=== PATIENT | male | born 1960 | race Caucasian/White ===

== ENCOUNTER 2018-08-01 08:30 | Day surgery (SDC) | payer BC ==
[2018-08-01] MEDS ORDERED: PROPOFOL 20 ML ×2 (10:27→11:17)
== END 2018-08-01 12:31 | disposition home or self-care (01) ==
LOC: GIL 08:30
DX: Z12.11 Encounter for screening for malignant neoplasm of colon (principal); D12.5 Benign neoplasm of sigmoid colon; K64.4 Residual hemorrhoidal skin tags; K64.8 Other hemorrhoids
CPT/HCPCS: 45380; 88305